=== PATIENT | female | born 1960 | race Caucasian/White ===

== ENCOUNTER 2016-05-07 15:11 | Emergency (ER) | payer MEDICARE, OTHER ==
[~2016-05-07] VITALS: Ht 172.7 cm; Wt 122.5 kg
[~2016-05-07 15:11] MED LIST: AMLO2.5T PO; AZIT250T6 PO; CEPH-263 PO; CLON0.1T PO; CLON0.5T PO; CYCL10TA2 PO; FAMO-63 PO; FLUC100T4 PO; GABA-585 PO; GABA600T91 PO; LORA-434 PO; LORA10TA3 PO; MECL25TA3 PO; MULT1TAB52 PO; ONDA4TAB7 PO; PRED1TAB PO; SULF1TAB3 PO; TOPI25TA32 PO; TRAM50TA PO; [UNRECOGNIZED DRUG - CODE] MC
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
[2016-05-07] MEDS ORDERED: LORAZEPAM 1 MG TABLET. PO ONE ×2 (15:45→19:30)
[2016-05-07 16:02] LABS: BASO # 0.1 x10^3/uL (0.0-0.2); BASO % 1 % (0-3); EOS # 0.1 x10^3/uL (0.0-0.7); EOS % 1 % (0-3); HEMATOCRIT 45.1 % (36.0-47.0); HEMOGLOBIN 14.5 g/dL (12.0-15.5); LYMPH # 2.8 x10^3/uL (1.0-4.8); LYMPH % 27 % (24-48); MEAN CORPUSCULAR HEMOGLOBIN 29 pg (25-35); MEAN CORPUSCULAR HGB CONC 32 g/dL (31-37); MEAN CORPUSCULAR VOLUME 90 fL (79-100); MONO # 0.7 x10^3/uL (0.0-1.1); MONO % 7 % (0-9); NEUT # 6.9 x10^3uL (1.8-7.7); NEUT % 65 % (31-73); PLATELET COUNT 284 x10^3/uL (140-400); RED BLOOD COUNT 5.03 x10^6/uL (3.50-5.40); RED CELL DISTRIBUTION WIDTH 14.9 % (11.5-14.5); WHITE BLOOD COUNT 10.5 x10^3/uL (4.0-11.0)
[2016-05-07] MEDS ORDERED: OLANZapine IM 10 MG VIAL. IM ONE (16:04)
[2016-05-07 16:08] LABS: CALCIUM 9.5 mg/dL (8.5-10.1); CREATININE 1.2 mg/dL (0.6-1.0); GFR 46.5; POTASSIUM 3.3 mmol/L (3.5-5.1)
[2016-05-07 16:18] LABS: BILIRUBIN,URINE NEG (NEG); CLARITY,URINE CLOUDY; COLOR,URINE YELLOW; GLUCOSE,URINE NEG (NEG)
[2016-05-07 16:19] LABS: NITRITE,URINE NEG (NEG); RBC,URINE OCC /HPF (0-2); UROBILINOGEN,URINE 0.2 mg/dL (0.2 mg/dL)
[2016-05-07 16:21] LABS: BACTERIA,URINE MOD /HPF (0-FEW); SQUAMOUS EPITHELIAL CELL,UR MANY /LPF
[2016-05-07] MEDS ORDERED: CLONAZEPAM 1 MG TABLET PO ONE (16:30)
[2016-05-07 16:41] LABS: ACETAMIN < 2.0 mcg/mL (10-30); BARBITURATES NEG (NEG); BENZODIAZEPINES NEG (NEG); CANNABINOIDS NEG (NEG); COCAINE NEG (NEG); ETHANOL < 10 mg/dL (0-10); METHADONE NEG (NEG); OPIATES NEG (NEG); PHENCYCLIDINE NEG (NEG); SALIC 5.2 mg/dL (2.8-20.0)
[2016-05-07 16:43] LABS: AMPHETAMINE/METHAMPHETAMINE NEG (NEG)
[2016-05-07] MEDS ORDERED: POTASSIUM CHLORIDE 20 MEQ TABLET.ER. PO ONE (17:30)
[2016-05-07 19:00] VITALS: BP 140/87
[2016-05-07] MEDS ORDERED: TRAMADOL 50 MG TABLET. PO ONE (19:30)
== END 2016-05-07 19:47 ==
LOC: ER 15:11
DX: R45.851 Suicidal ideations (principal); N39.0 Urinary tract infection, site not specified; G89.29 Other chronic pain; E87.6 Hypokalemia; G43.909 Migraine, unspecified, not intractable, without status migrainosus; F31.9 Bipolar disorder, unspecified; E11.9 Type 2 diabetes mellitus without complications; F32.9 Major depressive disorder, single episode, unspecified; F41.9 Anxiety disorder, unspecified; I10 Essential (primary) hypertension; F17.200 Nicotine dependence, unspecified, uncomplicated; Z88.0 Allergy status to penicillin; Z88.2 Allergy status to sulfonamides; Z88.8 Allergy status to other drugs, medicaments and biological substances
CPT/HCPCS: 36415; 80048; 80305; 80320; 81001; 85027; 87086; 99285; G6038; 99284; G0480; G0481; 80196

== ENCOUNTER 2016-08-30 19:57 | Emergency (ER) | payer MEDICARE, OTHER ==
[~2016-08-30] VITALS: Ht 172.7 cm; Wt 122.5 kg
[~2016-08-30 19:57] MED LIST changes: +CYCL-331 PO; -CYCL10TA2 PO; +SULF-143 PO; -SULF1TAB3 PO; -TOPI25TA32 PO; +TOPI25TA52 PO
[2016-08-30 20:11] VITALS: BP 169/93
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
[2016-08-30] MEDS ORDERED: ACETAMINOPHEN 325 MG TABLET PO ONE (20:45)
--- NOTE | 2016-08-30 21:00 | RAD ---
CT C-Spine without contrast: Clinical History: pt has neck pain after moving boxes today Technique: Axial helical images of the cervical spine were obtained without contrast, axial coronal and sagittal reconstruction was performed. Findings: Mild loss of stature of the C2 vertebral body appears to be due to degenerative endplate changes. There is no prevertebral soft tissue swelling. The vertebral bodies are well aligned. There is straightening of the normal cervical lordosis which can be positional or could be chronic. The C1-C2 relationship is normal. The visualized osseous structures appear normal. Evaluation of the central canal is limited without contrast. There is multiple posterior disc bulges resulting in flattening of the thecal sac. There does not appear to be gross flattening of the cervical cord. There is moderate narrowing of multiple neuroforamen. Impression: No acute findings. Clinical correlation suggested. PQRS Compliance Statement: One or more of the following individualized dose reduction techniques were utilized for this examination: 1. Automated exposure control 2. Adjustment of the mA and/or kV according to patient size 3. Use of iterative reconstruction technique Electronically signed by: Beny Marion III, MD (08/30/2016 8:57 PM)
[2016-08-30] MEDS ORDERED: ACET325T9 PO (21:08)
[2016-08-30] MEDS ORDERED: METH-37 PO (21:08)
== END 2016-08-30 21:30 | disposition home or self-care (01) ==
LOC: ER 19:57
DX: F41.9 Anxiety disorder, unspecified (principal); G89.29 Other chronic pain; E03.9 Hypothyroidism, unspecified; E11.9 Type 2 diabetes mellitus without complications; I10 Essential (primary) hypertension; Z87.891 Personal history of nicotine dependence; Z88.0 Allergy status to penicillin; Z88.2 Allergy status to sulfonamides; Z88.8 Allergy status to other drugs, medicaments and biological substances
CPT/HCPCS: 72125; 99284-25

== ENCOUNTER → 2016-09-11 | Outpatient (CLI) | payer MEDICARE, OTHER ==
[2016-08-30 20:11] VITALS: BP 169/93
[~2016-09-11] MED LIST changes: +ACET325T9 PO; +METH-37 PO
--- NOTE | 2016-09-11 13:18 | RAD ---
Indication fall, pain. AP oblique and lateral views of the left foot were obtained. There is a nondisplaced, spiral, traumatic fracture involving the proximal phalanx of the second toe. No additional bony abnormality is seen. IMPRESSION: Nondisplaced fracture of the proximal phalanx of the second toe
== END | disposition home or self-care (01) ==
LOC: DXRADRC 11:51
PROVIDERS: ATTEND Internal Medicine
DX: S92.515A Nondisplaced fracture of proximal phalanx of left lesser toe(s), initial encounter for closed fracture (principal); W19.XXXA Unspecified fall, initial encounter; Y93.89 Activity, other specified; Y92.89 Other specified places as the place of occurrence of the external cause; Y99.8 Other external cause status
CPT/HCPCS: 73630

== ENCOUNTER → 2016-09-23 | Outpatient (CLI) | payer MEDICARE ==
[2016-08-30 20:11] VITALS: BP 169/93
--- NOTE | 2016-09-23 15:38 | RAD ---
Indication follow-up fracture. AP and lateral views targeted to the toes were obtained. Note is made of a prior examination 12 days earlier. Known nondisplaced fracture involving the proximal phalanx of the second toe is seen. It remains nondisplaced. No unexpected finding is seen. IMPRESSION: Healing fracture proximal phalanx second toe
== END | disposition home or self-care (01) ==
LOC: DXRADRC 15:20
PROVIDERS: ATTEND General Practice
DX: S92.502D Displaced unspecified fracture of left lesser toe(s), subsequent encounter for fracture with routine healing (principal); X58.XXXD Exposure to other specified factors, subsequent encounter
CPT/HCPCS: 73660

== ENCOUNTER → 2016-09-30 | Outpatient (CLI) | payer MEDICARE, OTHER ==
--- NOTE | 2016-09-30 15:04 | RAD ---
Pelvis with right hip, 2 views, 09/30/2016: History: Right hip and lower back pain The upper pelvis was not completely included on this exam. No fracture or dislocation is identified. There is only minimal narrowing of the hip joint spaces. The periarticular soft tissues are unremarkable. IMPRESSION: No acute pelvic or right hip abnormality is detected. Lumbar spine, 5 views, 09/30/2016: History: Lower back pain The lumbar vertebral heights are well-maintained. There is mild disc space narrowing at L4-5. There are mild scattered marginal spurs. There are mild degenerative changes involving the facet joints in the lower lumbar spine. There is no evidence of spondylolysis. The paraspinous soft tissues are unremarkable. IMPRESSION: 1. Mild degenerative changes. 2. No acute lumbar spine abnormality is detected.
== END | disposition home or self-care (01) ==
LOC: DXRADRC 11:32
PROVIDERS: ATTEND General Practice
DX: S72.091D Other fracture of head and neck of right femur, subsequent encounter for closed fracture with routine healing (principal); M47.896 Other spondylosis, lumbar region; X58.XXXD Exposure to other specified factors, subsequent encounter
CPT/HCPCS: 72110; 73501

== ENCOUNTER 2016-10-11 12:24 | Emergency (ER) | payer MEDICARE, OTHER ==
[~2016-10-11] VITALS: Ht 172.7 cm; Wt 94.7 kg
[2016-10-11 12:27] VITALS: BP 152/117
--- NOTE | 2016-10-11 13:32 | RAD ---
Indication sudden onset of neck pain. Axial images of the cervical spine were obtained and reformatted in the coronal and sagittal planes. Note is made of a previous examination 08/30/2016. The lung apices appear clear. No acute finding is seen in the visualized brain. No significant soft tissue finding is seen in the neck. There is slight wedging of C3 similar to the previous exam. There are some degenerative changes in the cervical spine. An acute finding is not apparent. IMPRESSION: Degenerative change. No acute bony finding seen PQRS Compliance Statement: One or more of the following individualized dose reduction techniques were utilized for this examination: 1. Automated exposure control 2. Adjustment of the mA and/or kV according to patient size 3. Use of iterative reconstruction technique
--- NOTE | 2016-10-11 13:58 | PHYS DOC ---
Past History Past Medical History: Anxiety, Bipolar, Depression Additional Past Medical Histor: multiple past hospitalizations for psychosis. Past Surgical History: Other Additional Past Surgical Histo: Eye surgery Smoking: Greater than 1 pack/day Alcohol Use: None Drug Use: None Adult General Chief Complaint Chief Complaint: Neck Pain HPI HPI Patient is a 56 year old female who presents with complaint of neck pain. The patient was brought to the emergency department by EMS after she called due to feeling numbness in her hands and feet. The patient walked to the EMS staff in her home and was able to get into the EMS cot under her own power. Upon arrival to the emergency department, the patient became very anxious and stated that she did not want to move as she was afraid she had a broken neck and that she might cause herself to become paralyzed. The patient states that she has "brittle bones" and states that this came about because she accidentally drank a chelating agent at a hospital that was mislabeled and that this leached excessive amounts of calcium from all of her bones. The patient states that she is on psychiatric meds and is treated for depression and bipolar disorder. Patient states that she took her medications earlier today. Patient states that she is having pain throughout all of her bones currently and is concerned that any of her bones could shatter at any moment. The patient denies suicidal or homicidal ideation. Of note the patient was seen in the emergency department on August [address] Pradhan with similar complaints. Patient denies any recent fall or neck trauma. Review of Systems Review of Systems Constitutional: Denies fever or chills [] Eyes: Denies change in visual acuity, redness, or eye pain [] HENT: Denies nasal congestion or sore throat [] Respiratory: Denies cough or shortness of breath [] Cardiovascular: Denies chest pain or edema [] GI: Denies abdominal pain, nausea, vomiting, bloody stools or diarrhea [] : Denies dysuria or hematuria [] Musculoskeletal: Bone pain, neck pain [] Integument: Denies rash or skin lesions [] Neurologic: Numbness to fingers and toes, denies weakness or headache [] Allergies Allergies Allergies Coded Allergies Type Severity Reaction Last Updated Verified NSAIDS (Non-Steroidal Anti-Inflamma Allergy Intermediate 11/24/13 Yes Penicillins Allergy Intermediate Nausea 11/24/13 Yes Sulfa (Sulfonamide Antibiotics) Allergy Unknown 11/29/15 Yes haloperidol Allergy Unknown 05/07/16 Yes propoxyphene Allergy Unknown Hives 09/21/14 Yes risperidone Allergy Unknown 05/07/16 Yes Physical Exam Physical Exam Constitutional: Alert, afebrile, appears anxious. [] HENT: Normocephalic, atraumatic, bilateral external ears normal, oropharynx moist, no oral exudates, nose normal. [] Eyes: PERRLA, EOMI, conjunctiva normal, no discharge. [] Neck: C-collar placed during triage, bilateral paraspinous muscle tenderness to minimal non-nailbed blanching palpation, supple, no stridor. [] Cardiovascular:Heart rate regular rhythm, no murmur [] Lungs & Thorax: Bilateral breath sounds clear to auscultation [] Abdomen: Bowel sounds normal, soft, no tenderness, no masses, no pulsatile masses. [] Skin: Warm, dry, no erythema, no rash. [] Back: No tenderness, no CVA tenderness. [] Extremities: No tenderness, no cyanosis, no clubbing, ROM intact, no edema. [] Neurologic: Alert and oriented X 3, normal motor function, normal sensory function, no focal deficits noted. [] Psychologic: Affect normal, paranoid delusional thinking, mood labile. [] Current Patient Data Vital Signs Vital Signs Date Time Temp Pulse Resp B/P (MAP) Pulse Ox O2 Delivery O2 Flow Rate FiO2 10/11/16 12:27 98.0 85 20 98 Room Air EKG EKG Not performed [] Radiology/Procedures Radiology/Procedures [address] [address] IMAGING REPORT Signed PATIENT: HAKEEM STOCKTON ACCOUNT: [id number] : 1960 LOCATION: ER AGE: 56 SEX: F EXAM STATUS: REG ER ORD. PHYSICIAN: BENEDICTO BLOOD MD REASON: neck pain PROCEDURE: CT CERVICAL SPINE WO CONTRAST Indication sudden onset of neck pain. Axial images of the cervical spine were obtained and reformatted in the coronal and sagittal planes. Note is made of a previous examination 08/30/2016. The lung apices appear clear. No acute finding is seen in the visualized brain. No significant soft tissue finding is seen in the neck. There is slight wedging of C3 similar to the previous exam. There are some degenerative changes in the cervical spine. An acute finding is not apparent. IMPRESSION: Degenerative change. No acute bony finding seen PQRS Compliance Statement: One or more of the following individualized dose reduction techniques were utilized for this examination: 1. Automated exposure control 2. Adjustment of the mA and/or kV according to patient size 3. Use of iterative reconstruction technique DICTATED AND SIGNED BY: LILIBETH MERRILL MD DATE: 10/11/16 9838 CC: ZULEIKA SEGUNDO DO; BENEDICTO BLOOD MD ~ [] Course & Med Decision Making Course & Med Decision Making Pertinent Labs and Imaging studies reviewed. (See chart for details) The patient's exam and history were not consistent with an expected severe injury of the neck and patient's motor strength appears to be normal. The patient however maintains that she is concerned there is a serious injury in her neck and she is wanting an MRI. I explained to the patient that there are no red flag symptoms present that warrant emergency MRI as patient's deep tendon reflexes are intact, patient is not experiencing any bowel or bladder incontinence, and motor strength is normal on exam. Of note, the patient made a similar request at her previous visit on August 30 in the emergency department. Due to continued concern, I did agree to a CT scan of the neck which was completed in the emergency department and showed no acute findings. I suspect that the patient's symptoms are likely due to acute anxiety disorder with possible psychotic features. The patient however is alert and oriented 3 and denies any suicidal or homicidal ideation. The patient was treated with oral Tylenol. The patient asked to have a cervical collar to take home which was provided to the emergency department though I urged the patient not to keep her neck in the cervical collar excessively as this may cause worsening neck stiffness. The patient agreed to follow-up with her primary doctor in 1-2 days for reevaluation. Advised return emergency department for any worsening symptoms. Dragon Disclaimer Dragon Disclaimer This chart was dictated in whole or in part using Voice Recognition software in a busy, high-work load, and often noisy Emergency Department environment. It may contain unintended and wholly unrecognized errors or omissions. Departure Departure: Impression: Primary Impression: Anxiety Additional Impression: Neck pain Disposition: HOME, SELF-CARE Condition: IMPROVED Referrals: ZULEIKA SEGUNDO DO (PCP) Patient Instructions: Anxiety and Panic Attacks Additional Instructions: Your CT imaging showed no new changes from your previous imaging exam. It is highly unlikely that you have an unstable injury causing your symptoms. It is recommended follow-up with primary doctor in the next 1-2 days for reevaluation. You were provided with a neck brace for comfort though it is recommended that you not wear this brace at all times as this can cause worsening issues with neck stiffness. Return to the emergency department for any worsening symptoms. Problem Qualifiers BENEDICTO BLOOD MD Oct 11, 2016 13:58
[2016-10-11] MEDS ORDERED: ACETAMINOPHEN 325 MG TABLET PO ONE (14:25)
== END 2016-10-11 14:23 | disposition home or self-care (01) ==
LOC: ER 12:25
DX: M54.2 Cervicalgia (principal); F41.9 Anxiety disorder, unspecified; F31.9 Bipolar disorder, unspecified; F17.210 Nicotine dependence, cigarettes, uncomplicated; Z88.6 Allergy status to analgesic agent; Z88.0 Allergy status to penicillin; Z88.2 Allergy status to sulfonamides; Z88.8 Allergy status to other drugs, medicaments and biological substances
CPT/HCPCS: 72125; 99284-25

== ENCOUNTER 2016-10-21 22:05 | Emergency (ER) | payer MEDICARE, OTHER ==
[~2016-10-21] VITALS: Ht 172.7 cm; Wt 94.7 kg
[2016-10-21 22:05] VITALS: BP 164/103
--- NOTE | 2016-10-22 05:23 | PHYS DOC ---
Past History Past Medical History: Anxiety, Bipolar, Depression Additional Past Medical Histor: multiple past hospitalizations for psychosis. Past Surgical History: Other Additional Past Surgical Histo: Eye surgery Smoking: Greater than 1 pack/day Alcohol Use: None Drug Use: None Adult General Chief Complaint Chief Complaint: EYE PROBLEMS [facility] HPI Patient is a 56-year-old female with history significant for schizophrenia who presents to the ER today thinking that someone is poisoning her medications. Patient reports that she had loss of vision to her right eye. Patient was concerned and came to the ER because she feels that someone is poisoning all her psych medicines. Patient reports that she had stopped taking her psych medicines for several days and then recently restarted again psychiatric medications and her vision started to worsen out of her right eye. She denies any suicidal ideation. Patient denies any homicidal ideation. Patient denies any audio or visual hallucinations. In reviewing the patient's records patient does have a history for paranoia in the past. During my evaluation with her, the patient became agitated and requested to leave. Patient wanted me to give her a map to [place] because she wants to drive to [place] because that is where she is originally from. Patient requested that I can her back her medications and then left the ER reporting that she wants to go to the police station and said they can do forensic tests on her medications. Patient left the ER prior to full evaluation. I tried to ask the patient states that we can further evaluate her mental health issues and have [employer] administrator however the patient reports that she did not want to be here any longer, packed all her bags, and stormed out of the ER. Patient's physical examination ER was unremarkable. She is alert awake and oriented 3. Patient does appear to have some paranoid thoughts regarding her medications. Upon my examination of her right eyelid patient does not have any gross visual deficits. Patient's visual acuity is noted to be unremarkable as documented by the triage nurse. Review of Systems Review of Systems Constitutional: Denies fever or chills [] HENT: Denies nasal congestion or sore throat [] Respiratory: Denies cough or shortness of breath [] Cardiovascular: No additional information not addressed in HPI [] Allergies Allergies Allergies Coded Allergies Type Severity Reaction Last Updated Verified NSAIDS (Non-Steroidal Anti-Inflamma Allergy Intermediate 11/24/13 Yes Penicillins Allergy Intermediate Nausea 11/24/13 Yes Sulfa (Sulfonamide Antibiotics) Allergy Unknown 11/29/15 Yes haloperidol Allergy Unknown 05/07/16 Yes propoxyphene Allergy Unknown Hives 09/21/14 Yes risperidone Allergy Unknown 05/07/16 Yes Physical Exam Physical Exam Constitutional: Well developed, well nourished, no acute distress, non-toxic appearance. HENT: Normocephalic, atraumatic, bilateral external ears normal, oropharynx moist, no oral exudates, nose normal. Eyes: PERRLA, EOMI, conjunctiva normal, no discharge, funduscopic exam revealed no acute abnormalities however this was limited secondary to the patient being not very cooperative with the exam.. Neck: Normal range of motion, no tenderness, supple, no stridor. Cardiovascular:Heart rate regular rhythm, Lungs & Thorax: Bilateral breath sounds clear to auscultation Abdomen: Bowel sounds normal, soft, Skin: Warm, dry, no erythema, no rash. Back: No tenderness, no CVA tenderness. Extremities: No tenderness, no cyanosis, no clubbing, ROM intact, no edema. Neurologic: Alert and oriented X 3, normal motor function, normal sensory function, no focal deficits noted. Psychologic: Appears anxious. Tearful at times. Current Patient Data Vital Signs Vital Signs Date Time Temp Pulse Resp B/P (MAP) Pulse Ox O2 Delivery O2 Flow Rate FiO2 10/21/16 22:05 98.3 80 20 96 Room Air EKG EKG [] Radiology/Procedures Radiology/Procedures [] Course & Med Decision Making Course & Med Decision Making Pertinent Labs and Imaging studies reviewed. (See chart for details) [] Dragon Disclaimer Dragon Disclaimer This chart was dictated in whole or in part using Voice Recognition software in a busy, high-work load, and often noisy Emergency Department environment. It may contain unintended and wholly unrecognized errors or omissions. Departure Departure: Impression: Primary Impression: Anxiety Disposition: AGAINST MEDICAL ADVICE Condition: STABLE Referrals: ZULEIKA SEGUNDO DO (PCP) ELLI FALCON MD Oct 22, 2016 05:23
== END 2016-10-21 22:47 | disposition left against medical advice (07) ==
LOC: ER 22:05
DX: F41.9 Anxiety disorder, unspecified (principal); H54.61 Unqualified visual loss, right eye, normal vision left eye; F20.9 Schizophrenia, unspecified; F31.9 Bipolar disorder, unspecified; Z88.0 Allergy status to penicillin; Z88.2 Allergy status to sulfonamides; Z88.6 Allergy status to analgesic agent; Z88.8 Allergy status to other drugs, medicaments and biological substances
CPT/HCPCS: 99282; 99284